=== PATIENT | female | born 1940 | race Caucasian/White ===

== ENCOUNTER 2017-10-03 09:51 | Emergency (ER) | payer MEDICARE, MEDICAID ==
[2017-10-03] MEDS ORDERED: CLINDAMYCIN 150 MG CAP PO ONE (10:45)
[2017-10-03] MEDS ORDERED: PREDNISONE 20 MG TAB PO ONE (10:45)
--- NOTE | 2017-10-03 10:46 | Emergency Department Record ---
History of Present Illness - General Chief complaint: Bite Insect/other Stated complaint: L KNEE INSECT BITE Time Seen by Provider: 10/03/17 10:41 Source: Patient Mode of Arrival: Ambulatory Limitations: No limitations - History of Present Illness Initial comments: The patient is here due to sustaining and insect bite to the L knee 2 days ago. It was quite pruritic yesterday but now today it has become more painful and warm. She denies any fever, chills, or pain with walking on the L leg. MD complaint: Insect bite/sting, Rash Onset/Timin -: Days(s) Location: LLE Severity: Mild Severity scale (1-10): 3 Quality: Burning Consistency: Constant Improves with: None Worsens with: None Context: None Associated symptoms: Denies other symptoms - Related Data Previous Rx's Medication Instructions Recorded Clindamycin HCl [Cleocin HCl] 300 mg PO QID #28 capsule 10/03/17 Prednisone [Prednisone 20Mg] 40 mg PO DAILY #8 tab 10/03/17 Allergies Allergy/AdvReac Type Severity Reaction Status Date / Time lisinopril [From Zestril] Allergy ANAPHYLAXIS Verified 10/03/17 10:32 Travel Screening - Travel/Exposure Within Last 30 Days Have you traveled within the last 30 days?: No Review of Systems Constitutional: Reports: Malaise. Denies: Chills, Fever Eyes: Denies: Eye discharge ENT: Denies: Congestion Respiratory: Denies: Cough, Dyspnea Past Medical History - SOCIAL HISTORY Smoking Status: Never smoker Alcohol Use: None Drug Use: None - RESPIRATORY Hx Respiratory Disorders: No - CARDIOVASCULAR Hx Cardio Disorders: Yes Hx Heart Attack: Yes - NEURO Hx Neuro Disorders: No - GI Hx GI Disorders: No - Hx Genitourinary Disorders: No - ENDOCRINE Hx Endocrine Disorders: Yes Hx Thyroid Disease: Yes - MUSCULOSKELETAL Hx Musculoskeletal Disorders: Yes Comment:: osteoarthritis of the spine - PSYCH Hx Psych Problems: No - HEMATOLOGY/ONCOLOGY Hx Hematology/Oncology Disorders: No Family Medical History Any Significant Family History?: No Physical Exam - General General Appearance: Alert, Oriented x3, Cooperative, No acute distress - Head Head exam: Atraumatic, Normocephalic, Normal inspection - Eye Eye exam: Normal appearance, PERRL - Neck Neck exam: Normal inspection, Full ROM. negative: Tenderness - Respiratory Respiratory exam: Normal lung sounds bilaterally. negative: Respiratory distress - Cardiovascular Cardiovascular Exam: Regular rate, Normal rhythm, Normal heart sounds - Extremities Extremities exam: Full ROM (with no L knee pain.), Normal capillary refill, Tenderness (There is slight tenderness to the rash area with slight warmth.). negative: Normal inspection (There is a 2 cm circular erythematous rash to the L kneecap area with a central bite wound present. The rash is very well demarcated and there also is a very small clear blister present. ), Joint swelling - Neurological Neurological exam: Alert, Normal gait. negative: Abnormal gait, Motor sensory deficit Course Vital Signs 10/03/17 10:26 Temperature 98.6 F Pulse Rate 65 Respiratory 18 Rate Blood Pressure 198/104 Pulse Ox 96 - Reevaluation(s) Reevaluation #1: I did explain to the patient that it appears she is having a local allergic rxn to an insect sting. Due to the area becoming more painful and red today we will cover her with oral Abx's also. She is to see her PCP in 2 days for a wound recheck. 10/03/17 10:52 Reevaluation #2: The patient is doing very well presently. Her BP is elevated but she states it is normally high like this. She did just take her BP medicines and was instructed to see her family doctor in 2-3 days to recheck her BP. 10/03/17 11:00 Disposition Disposition: Discharge Clinical Impression: Allergic reaction to bee sting Disposition: Home, Self-Care Condition: (2) Stable Instructions: Insect Bite or Sting (ED) Additional Instructions: Please use ice to the L knee when possible and keep antibiotic ointment and a bandaid over the ruptured blister. Please take Benadryl for the itching and continue the Prednisone and Clindamycin. Please see your family doctor for recheck in 2-3 days to recheck the knee wound and blood pressure. Return to the ER for any worsening symptoms or any worse pain, swelling, redness or any fever. Prescriptions: Clindamycin HCl [Cleocin HCl] 300 mg PO QID #28 capsule Prednisone [Prednisone 20Mg] 40 mg PO DAILY #8 tab Forms: Patient Portal Access Time of Disposition: 11:03 Quality - Quality Measures Quality Measures: N/A - Blood Pressure Screening View Details: Yes Does Patient Have Any of the Following: Active Dx of HTN Blood Pressure Classification: Hypertensive Reading Systolic Measurement: 198 Diastolic Measurement: 104 Screening for High Blood Pressure: Patient Exclusion, Hx of HTN [G9744]
== END 2017-10-03 11:14 | disposition home or self-care (01) ==
LOC: ER 09:51
DX: T63.441A Toxic effect of venom of bees, accidental (unintentional), initial encounter (principal); R22.2 Localized swelling, mass and lump, trunk
CPT/HCPCS: 99283; J7512

== ENCOUNTER 2017-11-19 12:16 | Emergency (ER) | payer MEDICARE, MEDICAID ==
[2017-11-19 14:08] LABS: BASO % 0.2 % (0-6); EOS % 1.6 % (0-6); GRAN % 58.2 % (47-80); HEMOGLOBIN 13.7 gm/dl (11.6-16.0); LYMPH % 30.9 % (16-45); MEAN CELL VOLUME 87.9 fl (81-97); MEAN CORPUSCULAR HEMOGLOBIN 28.7 pg (27-33); MEAN CORPUSCULAR HGB CONC 32.6 g/dl (32-36); MEAN PLATELET VOLUME 11.6 fl (7.4-10.4); MONO % 9.1 % (0-9); PLATELET COUNT 265 K/uL (130-400); RED BLOOD COUNT 4.78 M/uL (3.80-5.40); RED CELL DISTRIBUTION WIDTH 14.2 % (11.5-14.5); WHITE BLOOD COUNT W/O DIFF 9.6 K/uL (4.2-12.2)
[2017-11-19 14:16] LABS: BLOOD UREA NITROGEN 13 mg/dL (8-23); CREATININE 0.6 mg/dL (0.5-0.9); EST GLOMERULAR FILTRATION RATE > 60 mL/min
[2017-11-19 14:19] LABS: GLUCOSE,RANDOM 98 mg/dL (74-109)
[2017-11-19 14:22] LABS: CREATINE PHOSPHOKINASE 118 U/L (26-192)
[2017-11-19 14:25] LABS: CKMB 2.7 ng/mL (<3.77)
[2017-11-19] MEDS ORDERED: KETOROLAC 30 MG/ML VIAL IVP ONE (14:51)
[2017-11-19 15:30] LABS: ERYTHROCYTE SEDIMENTATION RATE 10 mm/hr (0-30)
--- NOTE | 2017-11-19 15:55 | Emergency Department Record ---
History of Present Illness - General Chief Complaint: Back Pain/Injury Stated Complaint: BACK PAIN Time Seen by Provider: 11/19/17 13:36 Source: Patient Mode of Arrival: Ambulatory Limitations: No limitations - History of Present Illness Initial Comments: pt has had back pain for 3 yrs which has gotten worse recently. Complaint: Back pain Onset/Timin -: Year(s) Similar Symptoms Previously: Yes Place: Home Radiation: None Quality: Sharp Consistency: Constant Improves With: None Worsens With: None Context: Unknown Associated Symptoms: Nausea/vomiting - Related Data Allergies Allergy/AdvReac Type Severity Reaction Status Date / Time lisinopril [From Zestril] Allergy ANAPHYLAXIS Verified 11/19/17 13:28 Travel Screening - Travel/Exposure Within Last 30 Days Have you traveled within the last 30 days?: No Review of Systems Reviewed: No additional complaints except as noted below Constitutional: Reports: As per HPI. Denies: Chills, Fever, Malaise, Night sweats, Weakness, Weight change Eyes: Reports: As per HPI. Denies: Eye discharge, Eye pain, Photophobia, Vision change ENT: Reports: As per HPI. Denies: Congestion, Dental pain, Ear pain, Epistaxis , Hearing loss, Throat pain Respiratory: Reports: As per HPI. Denies: Cough, Dyspnea, Hemoptysis, Stridor, Wheezes Cardiovascular: Reports: As per HPI. Denies: Arrhythmia, Chest pain, Dyspnea on exertion, Edema, Murmurs, Orthopnea, Palpitations, Paroxysmal nocturnal dyspnea, Rheumatic Fever, Syncope Endocrine: Reports: As per HPI. Denies: Fatigue, Heat or cold intolerance, Polydipsia, Polyuria Gastrointestinal: Reports: As per HPI. Denies: Abdominal pain, Constipation, Diarrhea, Hematemesis, Hematochezia, Melena, Nausea, Vomiting Genitourinary: Reports: As per HPI. Denies: Abnormal menses, Discharge, Dyspareunia, Dysuria, Frequency, Hematuria, Incontinence, Retention, Urgency Musculoskeletal: Reports: As per HPI, Back pain. Denies: Arthralgia, Gout, Joint swelling, Myalgia, Neck pain Skin: Reports: As per HPI. Denies: Bruising, Change in color, Change in hair/ nails, Lesions, Pruritus, Rash Neurological: Reports: As per HPI. Denies: Abnormal gait, Confusion, Headache, Numbness, Paresthesias, Seizure, Tingling, Tremors, Vertigo, Weakness Psychiatric: Reports: As per HPI. Denies: Anxiety, Auditory hallucinations, Depression, Homicidal thoughts, Suicidal thoughts, Visual hallucinations Hematological/Lymphatic: Reports: As per HPI. Denies: Anemia, Blood Clots, Easy bleeding, Easy bruising, Swollen glands Past Medical History - SOCIAL HISTORY Smoking Status: Never smoker Alcohol Use: None Drug Use: None - RESPIRATORY Hx Respiratory Disorders: No - CARDIOVASCULAR Hx Cardio Disorders: Yes Hx Hypertension: Yes Comment:: high cholesterol - NEURO Hx Neuro Disorders: No - GI Hx GI Disorders: No - Hx Genitourinary Disorders: No - ENDOCRINE Hx Endocrine Disorders: Yes Hx Thyroid Disease: Yes - MUSCULOSKELETAL Hx Musculoskeletal Disorders: Yes Comment:: osteoarthritis of the spine - PSYCH Hx Psych Problems: No - HEMATOLOGY/ONCOLOGY Hx Hematology/Oncology Disorders: No Family Medical History Any Significant Family History?: No Physical Exam - General General Appearance: Alert, Oriented x3, Cooperative, Mild distress - Head Head exam: Normal inspection - Eye Eye exam: Normal appearance, PERRL, EOMI Pupils: Normal accommodation - ENT ENT exam: Normal exam, Mucous membranes moist, Normal external ear exam, Normal orophraynx, TM's normal bilaterally Ear exam: Normal external inspection. negative: External canal tenderness Nasal Exam: Normal inspection. negative: Discharge, Sinus tenderness Mouth exam: Normal external inspection, Tongue normal Teeth exam: Normal inspection. negative: Dental caries Throat exam: Normal inspection. negative: Tonsillar erythema, Tonsillar exudate - Neck Neck exam: Normal inspection, Full ROM. negative: Tenderness - Respiratory Respiratory exam: Normal lung sounds bilaterally. negative: Respiratory distress - Cardiovascular Cardiovascular Exam: Regular rate, Normal rhythm, Normal heart sounds - GI/Abdominal GI/Abdominal exam: Soft, Normal bowel sounds. negative: Tenderness - Rectal Rectal exam: Deferred - exam: Deferred - Extremities Extremities exam: Normal inspection, Full ROM, Normal capillary refill. negative: Tenderness - Back Back exam: Reports: Normal inspection, Full ROM, Muscle spasm, Tenderness. 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 ] Respiratory 18 18 Rate Blood Pressure 207/125 Blood Pressure 183/101 [Left Arm] Pulse Ox 97 96 Medical Decision Making - Lab Data Result diagrams: 11/19/17 13:35 11/19/17 13:35 Lab Results 11/19/17 11/19/17 11/19/17 Range/Units 13:35 13:35 13:35 WBC 9.6 (4.2-12.2) K/uL RBC 4.78 (3.80-5.40) M/uL Hgb 13.7 (11.6-16.0) gm/dl Hct 42.0 (35.0-47.0) % MCV 87.9 (81-97) fl MCH 28.7 (27-33) pg MCHC 32.6 (32-36) g/dl RDW 14.2 (11.5-14.5) % Plt Count 265 (130-400) K/uL MPV 11.6 H (7.4-10.4) fl Gran % 58.2 (47-80) % Lymphocytes % 30.9 (16-45) % Monocytes % 9.1 H (0-9) % Eosinophils % 1.6 (0-6) % Basophils % 0.2 (0-6) % ESR 10 (0-30) mm/hr D-Dimer 0.33 (0-0.59) mg/L FEU Sodium 139 (136-145) mmol/L Potassium 4.1 (3.4-4.5) mmol/L Chloride 100 (98-107) mmol/L Carbon Dioxide 25.0 (22-29) mmol/L Anion Gap 14.0 (7-16) BUN 13 (8-23) mg/dL Creatinine 0.6 (0.5-0.9) mg/dL Estimated GFR > 60 mL/min Random Glucose 98 (74-109) mg/dL Calcium 9.4 (8.8-10.2) mg/dL Creatine Kinase 118 (26-192) U/L CK-MB (CK-2) 2.7 (<3.77) ng/mL Troponin T < 0.010 (0-0.010) ng/mL Disposition Disposition: Discharge Clinical Impression: Thoracic myofascial strain Qualifiers: Encounter type: initial encounter Qualified Code(s): S29.019A - Strain of muscle and tendon of unspecified wall of thorax, initial encounter Disposition: Home, Self-Care Condition: (1) Good Instructions: Muscle Spasm (ED), Thoracic Back Strain (ED), Thoracic Disc Herniation (ED) Additional Instructions: follow up with family doctor. return sooner if worse. rotate ice and moist heat Forms: Patient Portal Access Quality - Quality Measures Quality Measures: N/A - Blood Pressure Screening Does Patient Have Any of the Following: Active Dx of HTN Blood Pressure Classification: Hypertensive Reading Systolic Measurement: 207 Diastolic Measurement: 125 Screening for High Blood Pressure: Patient Exclusion, Hx of HTN [G9744]
[2017-11-19] MEDS ORDERED: MORPHINE SULFATE 10 MG/ML VIAL IVP ONE (15:59)
--- NOTE | 2017-11-21 11:24 | RADIOLOGY REPORT ---
EXAM: CHEST 2 VIEWS HISTORY: CHRONIC UPPER BACK PAIN, RECENTLY WORSENED. PATIENT ALSO NOTES RECENT NAUSEA AND SHAKINESS. TECHNIQUE: PA and lateral views of the chest. COMPARISON: No relevant comparison available. FINDINGS: Cardiac silhouette is within normal size limits. Thoracic aorta is calcified and tortuous. No focal pulmonary consolidation, pleural effusion, or pneumothorax is appreciated. Multilevel thoracic spine degenerative change. Bilateral acromioclavicular joint degeneration. IMPRESSION: NO ACUTE CHEST FINDINGS. JOB NUMBER: [id number] MTDD
== END 2017-11-19 16:30 | disposition home or self-care (01) ==
LOC: ER 12:16
DX: S29.019A Strain of muscle and tendon of unspecified wall of thorax, initial encounter (principal); R11.2 Nausea with vomiting, unspecified; I10 Essential (primary) hypertension; X58.XXXA Exposure to other specified factors, initial encounter; Y92.009 Unspecified place in unspecified non-institutional (private) residence as the place of occurrence of the external cause
CPT/HCPCS: 99284 ×2; 96374; 96375; 82550; 85025; 85651; 82553; 80048; 84484; 85379; 71046; 93005; 93010; J1885; J2270